=== PATIENT | male | born 1960 | race Caucasian/White ===

== ENCOUNTER 2016-11-04 08:32 | Inpatient (IN) | payer MEDICAID ==
[~2016-11-04] VITALS: Ht 181.6 cm; Wt 102.1 kg
[2016-11-04 09:22] LABS: BASOPHILS 0.4 % (0.0-2.0); EOSINOPHILS 2.4 % (0-7); HEMATOCRIT 45.8 % (42.0-54.0); HEMOGLOBIN 16.2 g/dL (13.5-17.5); IMMATURE GRANULOCYTES 0.1 % (0-5); LYMPHOCYTES 29.9 % (15-50); MCH 31.3 pg (26.0-34.0); MCHC 35.4 g/dL (31.0-37.0); MCV 88.4 fL (80.0-100.0); MEAN PLATELET VOLUME 9.9 fL (7.4-10.4); MONOCYTES 6.4 % (2-11); NEUTROPHILS 60.8 % (40-80); PLATELET COUNT 260 10x3/uL (130-400); RBC 5.18 10x6/uL (4.20-6.10); RDW 12.7 % (11.5-14.5); WBC 7.1 10x3/uL (4.8-10.8)
[2016-11-04 09:37] LABS: ALBUMIN 4.3 g/dL (3.4-5.0); ALKALINE PHOSPHATASE 87 U/L (46-116); ALT (SGPT) 41 U/L (10-68); CALC OSMOLALITY 277 mosm/kg (275-300); CALCIUM 9.3 mg/dL (8.5-10.1); CARBON DIOXIDE 22.4 mmol/L (21.0-32.0); CHLORIDE - SERUM 104 mmol/L (98-107); CREATININE - SERUM 0.8 mg/dL (0.6-1.3); GLUCOSE 148 mg/dL (74-106); PROTEIN - SERUM 8.6 g/dL (6.4-8.2); SODIUM 138 mmol/L (136-145); UREA NITROGEN 10 mg/dL (7-18); eGFR NON AFRICAN AMERICAN > 90 mL/min (90-120)
[2016-11-04 12:53] LABS: CHOL - HDL RATIO 9.1 ratio (2.3-4.9); HEMOGLOBIN A1C 5.9 % (4.8-6.0); LDL-HDL RATIO 6.4 ratio (1.5-3.5)
--- NOTE | 2016-11-04 13:11 | NUR ---
RECEDIVED TO ROOM 2209 FROM ER VIA . ORIENTED TO ROOM AND CALL LIGHT SYSTEM. CARE PLAN REVIEWED. PASSWORD AND PHARMACY OBTAINED. CALL LIGHT IN REACH. WILL CONTINUE WITH PLAN OF CARE
[2016-11-04] MEDS ORDERED: ASPIRIN325 MG PO (13:13)
--- NOTE | 2016-11-04 13:19 | NUR ---
OFFERED SCDs AND EXPLAINED IMPORTANCE TO PATIENT AND FAMILY BUT PATIENT REFUSED.
--- NOTE | 2016-11-04 13:59 | NUR ---
ASPIRIN AND PROTONIX PO PER ORDER. NO NEEDS VOICED AT THIS TIME. CALL LIGHT IN REACH. URINAL GIVEN TO PATIENT.
[2016-11-04 14:05] VITALS: BP 146/81
--- NOTE | 2016-11-04 14:05 | NUR ---
VSS TAKEN. BP NOW 146/81 COMPARED TO 181/102 IN ER. WILL CONTINUE TO MONITOR.
[2016-11-04 14:07] VITALS: BP 146/81
[2016-11-04 15:09] VITALS: BP 146/81; BMI 31.0
--- NOTE | 2016-11-04 16:54 | NUR ---
DENIES NEEDS AT THIS TIME. CALL LIGHT IN REACH.
[2016-11-04 17:33] VITALS: BP 106/94
--- NOTE | 2016-11-04 18:07 | NUR ---
NO CHANGES IN INITIAL ASSESSMENT. STILL REFUSES SCDs. AT BEDSIDE. CALL LIGHT IN REACH. WILL CONTINUE WITH PLAN OF CARE.
[2016-11-04 21:17] VITALS: BP 150/80
--- NOTE | 2016-11-05 02:00 | NUR ---
PT IN BED WITH NO DISTRESS NOTED. RESPIRATIONS ARE EVEN AND UNLABORED. SIDE RAILS X 2. BED LOW. CALL LIGHT IN REACH.
[2016-11-05 07:17] LABS: BASOPHILS 0.6 % (0.0-2.0); EOSINOPHILS 2.6 % (0-7); HEMATOCRIT 45.2 % (42.0-54.0); HEMOGLOBIN 15.7 g/dL (13.5-17.5); IMMATURE GRANULOCYTES 0.1 % (0-5); LYMPHOCYTES 32.5 % (15-50); MCH 30.9 pg (26.0-34.0); MCHC 34.7 g/dL (31.0-37.0); MONOCYTES 6.5 % (2-11); NEUTROPHILS 57.7 % (40-80); PLATELET COUNT 267 10x3/uL (130-400); RBC 5.08 10x6/uL (4.20-6.10); RDW 12.6 % (11.5-14.5); WBC 7.2 10x3/uL (4.8-10.8)
[2016-11-05 07:39] LABS: ALKALINE PHOSPHATASE 79 U/L (46-116); ALT (SGPT) 43 U/L (10-68); CALC OSMOLALITY 274 mosm/kg (275-300); CALCIUM 9.1 mg/dL (8.5-10.1); CARBON DIOXIDE 22.4 mmol/L (21.0-32.0); CHLORIDE - SERUM 103 mmol/L (98-107); CHOL - HDL RATIO 9.7 ratio (2.3-4.9); CHOLESTEROL, TOTAL 348 mg/dL (0-200); GLUCOSE 140 mg/dL (74-106); HDL CHOLESTEROL 36 mg/dL (32-96); LDL CHOLESTEROL 254 mg/dL (0-100); LDL-HDL RATIO 7.1 ratio (1.5-3.5); PROTEIN - SERUM 8.1 g/dL (6.4-8.2); SODIUM 137 mmol/L (136-145); TRIGLYCERIDE 290 mg/dL (30-200); UREA NITROGEN 11 mg/dL (7-18); eGFR NON AFRICAN AMERICAN 81 mL/min (90-120)
[2016-11-05 08:12] VITALS: BP 150/91
--- NOTE | 2016-11-05 08:24 | NUR ---
AWAKE AND ALERT. ORIENTED X3. NO C/O AT THIS TIME. AT BEDSIDE. LUNGS ARE CLEAR BILATERALLY, NO COUGH NOTED. SKIN IS INTACT WITHOUT REDNESS. SOME WEAKNESS NOTED TO RIGHT ARM AND UPPER LIP WELL. REPORTS RIGHT LEG STRONG. WILL CONTINUE TO MONITOR. SL TO LEFT HAND IS PATENT WITHOUT REDNESS AT INSERTION SITE. SECOND IV SITED TO LEFT FOREARM AFTER ONE ATTEMPT WITH 20 G. NPO FOR TEST AT THIS TIME. DENIES NEEDS.
--- NOTE | 2016-11-05 10:30 | NUR ---
OFF UNIT VIA FOR CT.
--- NOTE | 2016-11-05 11:00 | NUR ---
RETURNED FROM CT SCAN. IV TO LEFT UPPER ARM. INFILTRATED AND D/C DURING PROCEDURE. WARM MOIST HEAT APPLIED TO AREA.
[2016-11-05 11:10] VITALS: Ht 181.6 cm; Wt 102.1 kg
--- NOTE | 2016-11-05 11:11 | NUR ---
Name: PAL VIDALES Admission Status: ER Accout number: [id number] Admission Date: 11-04-2016 : 1960 Admission Diagnosis: Attending: KAREEM Current LOS: 1 Anticipated DC Date: 11-06-2016 Planned Disposition: Inpatient Rehab Primary Insurance: [place] [employer] Discharge Planning Comments: CM MET WITH PATIENT REGARDING D/C NEEDS AND PLANS. PATIENT STATED HE LIVES WITH HIS AND SHE COULD DRIVE HIM HOME AT DISCHARGE. PATIENT STATED THERE ARE NO STEPS OR STAIRS AT HIS HOME. PATIENT STATED HE IS INDEPENDENT WITH HIS CARE AND HAS NO DME AT HOME. PATIENT HAS NO PCP AT THIS TIME BUT IS AT DR. LIN OFFICE TO SEE IF THEY WOULD ACCEPT HER A PATIENT AT THAT CLINIC. PATIENT USES [facility]. CM WILL SEND A REFERRAL TO [facility]. PATIENT IS WANTING TO GO THERE. CM WILL CONTINUE TO FOLLOW PATIENT WITH D/C NEEDS AND PLANS. PCP NONE AT THIS TIME [facility]- [phone] BRY (SPOUSE) [phone] Pourer Off: Gia Cabezas Is the patient Alert and Oriented? Yes 0 * How many steps to enter\exit or inside your home? 0 0 * PCP NONE ( TALKING WITH DR. RAYA TODAY) 0 * Pharmacy [facility] 0 * Preadmission Environment Home with Family 0 * ADLs Independent 0 * Equipment None 0 * List name and contact numbers for known caregivers / representatives who currently or will assist patient after discharge: BRY () [phone] 0 * Community resources currently utilized None 0 * Additional services required to return to the preadmission environment? Yes 0 * Can the patient safely return to the preadmission environment? Yes 0 * Has this patient been hospitalized within the prior 30 days at any hospital? No 0 Grand Total: 0
[2016-11-05 12:06] VITALS: BP 150/78
--- NOTE | 2016-11-05 12:28 | NUR ---
OT NOTE: PT OBSERVED AMB IN ROOM WITH WALKER. EDUCATED PT ON IMPORTANCE OF CALLING FOR ASSIST TO PREVENT FALLS. PERFORMED AROM EXS FOR SHOULDER FLEX/EXT, ELBOW FLEX/EXT; WRIST FLEX/EXT; AND FINGER FLEX/EXT.. ALL 10 REPS. PT ABLE TO DEMONSTRATE AND INSTRUCTED TO PERFORM 3 MORE SETS DURING DAY. PT ATTEMPTING TO USE R HAND TO FEED SELF, HOWEVER, LIMITED STRENGTH AT THIS TIME FOR THIS TASK. ENCOURAGED PT TO CONT ATTEMPTS WITH R HAND
--- NOTE | 2016-11-05 12:30 | NUR ---
LUNCH SERVED IN ROOM . FEEDS SELF WITH SOME THOUGHT TO HOW THE UTENSILS WORK. DENIES NEEDS.
[2016-11-05] MEDS ORDERED: LISINOPRIL5 MG PO (14:33)
[2016-11-05] MEDS ORDERED: PRAVACHOL20 MG PO (14:33)
[2016-11-05] MEDS ORDERED: PROTONIX40 MG PO (14:33)
--- NOTE | 2016-11-05 14:54 | NUR ---
CM REASSESSMENT NOTE: PATIENT HAS BEEN ACCEPTED TO IP REHAB AT [facility] WILL PICK PATIENT UP TODAY.
--- NOTE | 2016-11-05 16:10 | NUR ---
REPORT CALLED TO ANTONIA CENTENO RN [facility]. ALL QUESTIONS ANSWERED. SL TO LEFT HAND D/C WITH CATHETER INTACT. TELEMETRY D/C WELL. WAITING ON THEIR TRANSPORTATION FOR D/C.
--- NOTE | 2016-11-05 18:00 | NUR ---
ATE ALL OF SUPPER TRAY. DISCHARGED TO [facility] VIA THEIR TRANSPORTATION.
--- NOTE | 2016-11-15 08:46 | EC ---
PATIENT:PAL VIDALES DATE OF SERVICE: 11/04/16 SEX: M MEDICAL RECORD: [id number] DATE OF : 56 LOCATION:D[facility] AGE OF PATIENT: 56 ADMISSION DATE: 11/04/16 REFERRING PHYSICIAN: INTERPRETING PHYSICIAN: REJI RAUSCH MD ECHOCARDIOGRAM REPORT ECHO CHARGES 4 ECHO COMPLETE CLINICAL DIAGNOSIS: CVA ECHOCARDIOGRAPHIC MEASUREMENTS (adult normal given) AC root (d.<3.7cm) 3.7 LV Septum d (<1.2 cm> 1.4 Valve Excursion 2.2 LV Septum (systole) 2.3 Left Atria (s.<4.0cm> 4.3 LVPW d(<1.2cm) 1.3 RV (d.<2.3cm) 2.7 LVPW (sytole) 2.2 LV diastole(<5.6CM) 6.5 MV E-F(>70mm/sec) LV systole 4.1 LVOT Diameter 2.1 MV exc.(>10mm) Est.ejection fraction (50-75%) Pericardial Effusion N DOPPLER: LVIT A 55.0 E 83.0 LA RVSP 23.1 LVOT 136 AOP1/2T Asc. Ao 160 RVOT 82.0 RA PA 139 AV Gradient Peak 10.3 AV Mean 4.8 AV Area 3.0 MV Gradient Peak 4.0 MV Mean 1.6 MV Area COMMENTS: Inspector And Hand Packager: Guerrero MARLOWOE Acid Blower:1 Dr. Rausch TAPE# PACS DATE OF SERVICE: 11/04/2016 Echocardiogram FINDINGS: 1. Left ventricular chamber size is within normal limits. Left ventricular systolic function is normal. Overall ejection fraction estimated at 60%. 2. Left atrium, right atrium, and right ventricular chamber sizes are mildly dilated. Left atrium measures 4.3 cm. 3. Valvular structures have normal structure and motion. ECHOCARDIOGRAM REPORT [id number] PAL VIDALES 4. Doppler interrogation only reveals trace to mild tricuspid regurgitation. No other valvular insufficiency or stenosis. 5. No evidence of pericardial effusion or left ventricular thrombus. TRANSINT:[id number] Voice Confirmation ID: [id number] DOCUMENT ID: [id number] REJI RAUSCH MD at 0846 CC: [id number] DICTATION DATE: 11/05/16 1043 SHADE CUTTER: 11/05/16 1732 DIS IN 11/05/16 [facility] [address] [facility] [address] [address], [facility]
--- NOTE | 2016-12-12 15:18 | DS ---
PATIENT:PAL VIDALES :56 MEDICAL RECORD: [id number] DISCHARGE SUMMARY ADMISSION DATE: 11/04/16 DISCHARGE DATE: 11/05/16 This is a discharge dated 11/05/2016 from the inpatient hospital. DISCHARGE DIAGNOSES: 1. Cerebrovascular accident. 2. Acute hyperglycemia. 3. Hypertension. 4. Dysphagia. 5. Dysarthria. CONSULTS THIS HOSPITALIZATION: Neurology with Dr. Bergman. PROCEDURES THIS HOSPITALIZATION: Bedside swallow eval with moderate oral stage dysphagia and a moderate ataxic dysarthria of speech. HOSPITAL COURSE: Full H&P is located elsewhere on the chart on this 56-year-old male, who was admitted with right facial droop, right-sided weakness and slurred speech. Imaging was consistent with a CVA. He was started on aspirin. Echocardiogram was obtained with MRI of the brain and carotid Dopplers and a swallow study. His swallow eval with findings as listed above. He was seen by speech therapy throughout his stay. Echocardiogram with an EF of 60%, normal structure in motion of the valve with trace to mild tricuspid regurgitation. No significant carotid stenosis by Doppler. He was seen in consult by Dr. Bergman with recommendations to continue aspirin, statins were added for secondary stroke prevention. Case management was involved for discharge planning. He was considered stable for discharge to the [facility] rehab facility on 11/05/2016. DISCHARGE MEDICATIONS: As per discharge medication reconciliation. DISCHARGE DISPOSITION: The [facility]. He will follow up with Dr. Bergman with neurology in 1 month and with primary care upon discharge from the rehabilitation hospital. We will continue his current diet and level of activity. TRANSINT:[id number] Voice Confirmation ID: [id number] DOCUMENT ID: [id number] Dictated By: ELEAZAR HERNANDEZ I have interviewed/examined the above patient and agree with these documented findings. DIOGENES LOFTON MD at 1346 at 1518 CC: [id number] DICTATION DATE: 12/06/16 1630 JUNIOR GRAPHIC DESIGNER: 12/07/16 0529 DIS IN 11/05/16 [facility] [address] [place] [address]
== END 2016-11-05 18:00 | DRG 66 ==
LOC: D.ER 08:32 → D.MS 12:25
PROVIDERS: Family Medicine; ADMIT Family Medicine
DX: I63.9 Cerebral infarction, unspecified (principal); R29.810 Facial weakness; R47.1 Dysarthria and anarthria; R53.1 Weakness; R73.9 Hyperglycemia, unspecified; I10 Essential (primary) hypertension

== ENCOUNTER → 2018-10-02 09:08 | Outpatient (CLI) | payer MEDICAID ==
[2016-11-05 11:10] VITALS: BMI 30.9
[~2018-10-02 09:08] MED LIST: ASPIRIN325 MG PO; LISINOPRIL5 MG PO; PRAVACHOL20 MG PO; PROTONIX40 MG PO
== END | disposition home or self-care (01) ==
LOC: D.US 09:08
DX: I63.9 Cerebral infarction, unspecified (principal)

== ENCOUNTER → 2019-03-19 10:02 | Outpatient (CLI) | payer MEDICAID ==
[2016-11-05 11:10] VITALS: BMI 30.9
== END | disposition home or self-care (01) ==
LOC: D.US 10:00
PROVIDERS: ATTEND Family Medicine
DX: I65.29 Occlusion and stenosis of unspecified carotid artery (principal)